=== PATIENT | male | born 1990 ===

== ENCOUNTER 2019-12-19 20:48 | Emergency (ER) | payer OTHER ==
[2019-12-19 21:01] VITALS: BP 123/68
--- NOTE | 2019-12-19 21:41 | UC ---
Cardiac HPI - HPI Summary HPI Summary: patient c/o intermittent episodes of tachycardia and chest pain denies sob, no nausea, dizziness or sweating--- patient reports this has been occurring for about 10 years---and he has never had a work up - History of Current Complaint Chief Complaint: UCChestPain Stated Complaint: CHEST COMPLAINT Time Seen by Provider: 12/19/19 21:05 Hx Obtained From: Patient Onset/Duration: Gradual Onset, Resolved, Other - last 10 years Timing: Constant Chest Pain Location: Left Anterior Character: Fast, Irregular, Skipped Beats Aggravating Factor(s): Nothing Alleviating Factor(s): Nothing Associated Signs & Symptoms: Positive: Negative - Allergy/Home Medications Allergies/Adverse Reactions: Allergies Allergy/AdvReac Type Severity Reaction Status Date / Time No Known Allergies Allergy Verified 12/19/19 20:58 Home Medications: Home Medications NK [No Home Medications Reported] 12/19/19 [History Confirmed 12/19/19] PMH/Surg Hx/FS Hx/Imm Hx Previously Healthy: Yes - Surgical History Surgical History: None - Family History Known Family History: Positive: None - Social History Occupation: Student Lives: With Family Alcohol Use: Occasionally Substance Use Type: None Smoking Status (MU): Never Smoked Tobacco Review of Systems All Other Systems Reviewed And Are Negative: Yes Constitutional: Positive: Negative Skin: Positive: Negative Eyes: Positive: Negative ENT: Positive: Negative Respiratory: Positive: Negative Cardiovascular: Positive: Palpitations, Chest Pain Gastrointestinal: Positive: Negative Genitourinary: Positive: Negative Motor: Positive: Negative Neurovascular: Positive: Negative Musculoskeletal: Positive: Negative Neurological/Mental Status: Positive: Negative Psychological: Positive: Negative Is Patient Immunocompromised?: No Physical Exam Triage Information Reviewed: Yes Appearance: Well-Appearing, No Pain Distress, Well-Nourished Vital Signs: Initial Vital Signs Temp 98.8 F 12/19/19 20:53 Pulse 71 12/19/19 20:53 Resp 16 12/19/19 20:53 BP 123/68 12/19/19 20:53 Pulse Ox 100 12/19/19 20:53 Vital Signs Reviewed: Yes Eye Exam: Normal Eyes: Positive: Conjunctiva Clear ENT Exam: Normal ENT: Positive: Normal ENT inspection, Hearing grossly normal. Negative: Nasal congestion, Trismus, Muffled voice, Hoarse voice, Dental tenderness, Sinus tenderness Dental Exam: Normal Neck exam: Normal Neck: Positive: Supple, Nontender Respiratory Exam: Normal Respiratory: Positive: Chest non-tender, Lungs clear, Normal breath sounds, No respiratory distress, No accessory muscle use Cardiovascular Exam: Normal Cardiovascular: Positive: RRR, No Murmur, Pulses Normal, Brisk Capillary Refill Musculoskeletal Exam: Normal Musculoskeletal: Positive: Strength Intact, ROM Intact, No Edema Neurological Exam: Normal Neurological: Positive: Alert, Muscle Tone Normal Psychological Exam: Normal Skin Exam: Normal Diagnostics - EKG Cardiac Rate: NL Cardiac Rhythm: Sinus: Normal ST Segment: Normal EKG Comparison: No Significant Change Summary of EKG Findings: NSR without ectopy - Assessment/Plan Course Of Treatment: referral to pcp to consider holter monitoring, to ed should symptoms return, avoid c[employer]iene productions follow with yvette pickensh pcp this week - Clinical Impression Provider Diagnosis: History of palpitations Discharge ED - Sign-Out/Discharge Documenting (check all that apply): Patient Departure All imaging exams completed and their final reports reviewed: No Studies - Discharge Plan Condition: Stable Disposition: HOME Patient Education Materials: Heart Palpitations (ED), Noncardiac Chest Pain (ED ) Referrals: Care [facility] [Outside] - 2 Days [facility] [Outside] - 2 Days Additional Instructions: To ED if chest pain returns - Billing Disposition and Condition Condition: STABLE Disposition: Home
== END 2019-12-19 21:57 | disposition home or self-care (01) ==
LOC: UCEAST 20:48
DX: R07.9 Chest pain, unspecified (principal); R00.0 Tachycardia, unspecified
CPT/HCPCS: 99201; G0463